=== PATIENT | male | born 1990 | race Caucasian/White ===

== ENCOUNTER 2017-09-19 15:29 | Emergency (ER) | payer OTHER ==
[~2017-09-19] VITALS: Ht 180.3 cm; Wt 89.5 kg
[2017-09-19 15:32] VITALS: BP 126/70; TEMP 97.5
[2017-09-19 16:05] VITALS: PULSE 78
== END 2017-09-19 16:10 | disposition home or self-care (01) ==
LOC: COL.ER 15:29
DX: M25.511 Pain in right shoulder (principal); G47.00 Insomnia, unspecified; F17.210 Nicotine dependence, cigarettes, uncomplicated